=== PATIENT | male | born 1945 | race Caucasian/White ===

== ENCOUNTER 2018-02-13 12:59 | Inpatient (IN) | payer OTHER ==
[~2018-02-13 12:59] MED LIST: LIDOCAINE 2% (SDV) 5 ML INJ
[2018-02-13] MEDS ORDERED: CEFAZOLIN 2 GM/50 ML (PMX) 50 ML IVPB (15:30)
[2018-02-13] MEDS: LACTATED RINGER'S 1,000 ML IV* (15:30)
[2018-02-13] MEDS ORDERED: ZOLPIDEM 5 MG TAB PO (16:30)
[2018-02-13] MEDS ORDERED: CYCLOBENZAPRINE 10 MG TAB PO (16:30)
[2018-02-13] MEDS ORDERED: HYDROmorphONE 0.5 MG/0.5 ML SYG IV (16:30)
[2018-02-13] MEDS ORDERED: CEPASTAT LOZENGE MT (16:30)
[2018-02-13] MEDS ORDERED: ACETAMINOPHEN 325 MG TAB PO (16:30)
[2018-02-13] MEDS ORDERED: NALOXONE (0.4 MG/ML) INJ IV (16:30)
[2018-02-13] MEDS ORDERED: AL HYDROX/MG HYDROX/SIMETH 30 ML CUP PO (16:30)
[2018-02-13] MEDS ORDERED: BISACODYL 10 MG SUPP PR (16:30)
[2018-02-13] MEDS ORDERED: HYDROCODONE/APAP (5/325) TAB PO (16:30)
[2018-02-13] MEDS: CEFAZOLIN 1 GM/50 ML (PMX) 50 ML IVPB (16:30)
[2018-02-13] MEDS ORDERED: DIPHENHYDRAMINE 50 MG INJ IV ×2 (16:30→17:00)
[2018-02-13] MEDS ORDERED: GELATIN SIZE 100 SPONGE (16:49)
[2018-02-13] MEDS ORDERED: HYDROmorphONE 1 MG/5 ML IV SYRINGE IV ×2 (17:00)
[2018-02-13] MEDS ORDERED: MEPERIDINE 25 MG INJ IV (17:00)
[2018-02-13] MEDS ORDERED: ONDANSETRON 4 MG INJ IV (17:00)
[2018-02-13] MEDS ORDERED: ALBUTEROL 0.083% (NEB) 2.5 MG/3 ML AMP HHN (17:00)
[2018-02-13] MEDS ORDERED: METOCLOPRAMIDE 10 MG INJ IV (17:00)
[2018-02-13] MEDS ORDERED: FENTAnyl 50 MCG/ML VIAL IV ×2 (17:00)
[2018-02-13] MEDS ORDERED: FENTAnyl 50 MCG/ML VIAL (17:16)
[2018-02-13] MEDS: SURGIFOAM POWDER 1 GM KIT (18:26)
[2018-02-13] MEDS: THROMBIN 5000 UNIT VIAL (18:26)
[2018-02-13] MEDS: BUPIVACAINE 0.25%/EPI (SDV) 30 ML INJ (18:26)
[2018-02-13] MEDS: POLYMYXIN/BACITRACIN 1L IRRIG (18:27)
[2018-02-13] MEDS ORDERED: DEXAMETHASONE 4 MG/ML 1 ML INJ (18:40)
[2018-02-13] MEDS ORDERED: THROMBIN 5000 UNIT VIAL (18:51)
[2018-02-13] MEDS ORDERED: ROCURONIUM 50 MG INJ (20:21)
[2018-02-13] MEDS ORDERED: PROPOFOL 20 ML (20:21)
[2018-02-13] MEDS ORDERED: SUCCINYLCHOLINE CHLORIDE 100 MG/5 ML SYG IV (20:21)
[2018-02-13] MEDS ORDERED: SUGAMMADEX SODIUM 200 MG/2 ML VIAL IV (20:21)
[2018-02-13] MEDS ORDERED: CEFAZOLIN 1 GM INJ (20:21)
[2018-02-13] MEDS: HYDROmorphONE 0.2 MG/ML PCA IV (21:07)
[2018-02-13] MEDS: ONDANSETRON 4 MG INJ IV (21:39)
[2018-02-13] MEDS: HYDROmorphONE 1 MG/5 ML IV SYRINGE IV (21:40)
[2018-02-13 22:22] LABS: ADD UMIC YES; UR ASCORBIC ACID NEGATIVE (NEGATIVE); UR BILIRUBIN (Dip) NEGATIVE (NEGATIVE); UR BLOOD (Dip) 1+ mg/dL (NEGATIVE); UR CLARITY SLIGHTLY CLOUDY (CLEAR); UR COLOR YELLOW (YELLOW); UR GLUCOSE (Dip) NEGATIVE (NEGATIVE); UR KETONES (Dip) 1+ mg/dL (NEGATIVE); UR LEUKOCYTE ESTERASE (Dip) NEGATIVE Leu/ul (NEGATIVE); UR MUCUS FEW /HPF (NONE SEEN); UR NITRITE (Dip) NEGATIVE (NEGATIVE); UR RBC 2 /HPF (0-5); UR SPECIFIC GRAVITY (Dip) 1.018 (1.003-1.030); UR SQUAMOUS EPITHELIAL CELL FEW /HPF (FEW); UR TOTAL PROTEIN (Dip) NEGATIVE (NEGATIVE); UR UROBILINOGEN (Dip) NEGATIVE (NEGATIVE); UR WBC 3 /HPF (0-5)
[2018-02-13] MEDS: D5W-0.45 NACL + KCL 20 MEQ 1,000 ML IV (22:45)
[2018-02-13] MEDS: DOCUSATE SODIUM 100 MG CAP PO (22:50)
[2018-02-14] MEDS: CEFAZOLIN 1 GM/50 ML (PMX) 50 ML IVPB ×2 (01:31→08:17)
[2018-02-14] MEDS: D5W-0.45 NACL + KCL 20 MEQ 1,000 ML IV ×2 (02:11→12:25)
[2018-02-14 05:06] LABS: ADD MAN DIFF? NO
[2018-02-14 05:13] LABS: BASOPHILS % 0.1 % (0.0-2.0); HEMATOCRIT 36.6 % (42.0-52.0); HEMOGLOBIN 12.4 g/dl (14.0-18.0); LYMPHOCYTES # 0.7 10^3/ul (0.8-2.9); MEAN CORPUSCULAR HEMOGLOBIN 28.2 pg (29.0-33.0); MEAN CORPUSCULAR HGB CONC 33.9 g/dl (32.0-37.0); MEAN CORPUSCULAR VOLUME 83.2 fl (82.0-101.0); MEAN PLATELET VOLUME 9.4 fl (7.4-10.4); MONOCYTE # 0.1 10^3/ul (0.3-0.9); NEUTROPHIL # 7.1 10^3/ul (1.6-7.5); NEUTROPHILS % 89.5 % (39.0-77.0); PLATELET COUNT 220 10^3/UL (140-415); RED CELL DISTRIBUTION WIDTH 13.3 % (11.5-14.5)
[2018-02-14 05:13] LABS: WHITE BLOOD COUNT 7.9 10^3/ul (4.8-10.8)
[2018-02-14] MEDS: PANTOPRAZOLE 40 MG INJ IV (05:16)
[2018-02-14 05:37] LABS: ANION GAP 10 (8-16); BLOOD UREA NITROGEN 21 mg/dl (7-20); CALCIUM 8.4 mg/dl (8.4-10.2); CARBON DIOXIDE 30 mmol/L (21-31); CHLORIDE 106 mmol/L (97-110); CREATININE 0.93 mg/dl (0.61-1.24); GLUCOSE 199 mg/dl (70-220); MAGNESIUM 1.9 mg/dl (1.7-2.5); SODIUM 142 mmol/L (135-144)
[2018-02-14] MEDS: DOCUSATE SODIUM 100 MG CAP PO (08:17)
[2018-02-14] MEDS: AMLODIPINE 2.5 MG TAB PO (12:01)
[2018-02-14] MEDS: LOSARTAN 50 MG TAB PO (12:13)
[2018-02-14] MEDS ORDERED: DEXTROSE 50% 50 ML SYRINGE IV ×2 (14:00)
[2018-02-14] MEDS ORDERED: GLUCOSE GEL 15 GRAM TUBE PO ×2 (14:00)
[2018-02-14] MEDS ORDERED: GLUCAGON 1 MG INJ IM (14:00)
[2018-02-14] MEDS ORDERED: GLUCOSE GEL 15 GRAM TUBE BUCCAL (14:00)
[2018-02-14] MEDS: HYDROCODONE/APAP (5/325) TAB PO (15:50)
[2018-02-14] MEDS ORDERED: INSULIN ASPART [NOVOLOG] 3 ML PEN SC (17:25)
[2018-02-14] MEDS ORDERED: ATORVASTATIN 40 MG TAB PO (21:00)
[2018-02-15] MEDS ORDERED: ACCU-CHEK XX (02:00)
[2018-02-15] MEDS ORDERED: AMLODIPINE 2.5 MG TAB PO ×2 (09:00→13:00)
[2018-02-15] MEDS ORDERED: MULTIVITAMINS THERAPEUTIC TAB PO (09:00)
[2018-02-15] MEDS ORDERED: LOSARTAN 50 MG TAB PO ×2 (09:00)
== END 2018-02-14 16:20 | disposition home or self-care (01) | DRG 472 ==
LOC: REC 12:59 → MS1 22:15
PROVIDERS: Specialist
PROC: 0RG20A0 Fusion of 2 or more Cervical Vertebral Joints with Interbody Fusion Device, Anterior Approach, Anterior Column, Open Approach (ICD-10-PCS; principal; 2018-02-13 16:00)
PROC: 0RG20K0 Fusion of 2 or more Cervical Vertebral Joints with Nonautologous Tissue Substitute, Anterior Approach, Anterior Column, Open Approach (ICD-10-PCS; 2018-02-13 16:00)
PROC: 0RT30ZZ Resection of Cervical Vertebral Disc, Open Approach (ICD-10-PCS; 2018-02-13 16:00)
DX: M48.02 Spinal stenosis, cervical region (principal); M50.01 Cervical disc disorder with myelopathy, high cervical region; G95.89 Other specified diseases of spinal cord; E66.9 Obesity, unspecified; Z68.34 Body mass index [BMI] 34.0-34.9, adult; I10 Essential (primary) hypertension; E78.5 Hyperlipidemia, unspecified
CPT/HCPCS: 72040; 72156; 80048; 81001; 82962; 83735; 85025; 87086; 97116; 97162